=== PATIENT | female | born 1970 | race Caucasian/White ===

== ENCOUNTER 2016-05-06 21:52 | Inpatient (IN) | payer OTHER ==
[~2016-05-06] VITALS: Ht 154.9 cm; Wt 96.4 kg
--- NOTE | 2016-05-06 23:38 | ED ORDER SUMMARY ---
..... Patient: ELZA ZALDIVAR OrderSheet [facility] VisitID: [id number] [address] [place] [address] 45y, F Registration Date/Time: 05/06/2016 ORDER SHEET Weight: 90.7 kg (stated) Allergies: Erythromycin, Bactrim, Vicodin GENERAL ORDERS: CBC w Diff Urgent (22:13 05/06/2016 Dayan Cliffrod) (Ack 22:15 CHagerty ER Coin Machine Operator) (22:53 EInderbitzen R.N.) CMP Urgent (22:13 05/06/2016 Dayan Clifford) (Ack 22:15 CHagerty [facility] Coin Machine Operator) (22:53 EInderbitzen R.N.) UA-Culture if indicated Urgent (22:13 05/06/2016 Dayan Clifford) (Ack 22:15 [facility] Coin Machine Operator) (22:53 EInderbitzen R.N.) Lipase Urgent (22:13 05/06/2016 Dayan Clifford) (Ack 22:15 [facility] Coin Machine Operator) (22:53 EInderbitzen R.N.) Serum Quantitative Urgent (22:13 05/06/2016 Dayan Clifford) (Ack 22:15 CHagerty ER Coin Machine Operator) (22:53 EInderbitzen R.N.) US Abdomen Limited (No) Urgent (23:28 05/06/2016 Dayan Clifford) (Ack 23:31 Heidy) (0:48 CHagerty ER Coin Machine Operator) Consult - GI (23:29 05/06/2016 Dayan Clifford) (Ack 23:37 CHagerty ER Coin Machine Operator) (1:06 CHagerty ER Coin Machine Operator) MEDICATION ORDERS: GI Cocktail WHITE PO 30 mL (NOW) (22:47 05/06/2016 Dayan Clifford) (23:01 EInderbitzen R.N.) IV FLUIDS: IV NS : initial bolus 1000 mL (1000 mL/hr), then none - for X1 (NOW) (22:12 05/06/2016 Dayan Clifford) (22:31 EInderbitzen R.N.) Zofran IV 4 mg (NOW) (22:13 05/06/2016 Dayan Clifford) (22:32 EInderbitzen R.N.) Morphine IV 4 mg (HIGH ALERT MEDICATION, NOW) (22:13 05/06/2016 Dayan Clifford) (22:32 EInderbitzen R.N.) Dilaudid IV 1 mg (HIGH ALERT MEDICATION, NOW) (23:29 05/06/2016 Dayan Clifford) (23:40 EInderbitzen R.N.) Zosyn IV 4.5 gm/100mL (NOW) (00:50 05/07/2016 Dayan Clifford) (1:10 EInderbitzen R.N.) Dilaudid IV 1 mg (HIGH ALERT MEDICATION, NOW) (01:23 05/07/2016 EInderbitzen R.N. verbal order read back to Dayan Clifford) (1:24 EInderbitzen R.N.) ORDER SHEET NOTES: [Electronically signed by Mynor Portillo R.N. (02:32 05/07/2016)] [Electronically signed by Colten Palencia Dr. (07:35 05/07/2016)] [Electronically locked/signed by Mynor Portillo R.N. (02:32 05/07/2016)]
--- NOTE | 2016-05-06 23:38 | ED CLINICAL REPORT ---
Clinical Report - Physicians/Mid Levels [facility] [address] [place] [address] 05/06/2016 21:53 Patient: ELZA ZALDIVAR Arrived- By private vehicle. Historian- patient. HISTORY OF PRESENT ILLNESS Chief Complaint: ABDOMINAL PAIN. At its maximum, severity described as severe. When seen in the E.D., severity described as severe. Modifying factors- worsened by movement. Relieved by rest. This started past several days and is still present and worsening. It was gradual in onset and has been constant and waxing/waning but is not gone now. It is described as sharp. No radiation. It is described as located in the epigastric area. The patient has had nausea and diarrhea. No loss of appetite. She has had vomiting (described as nbnb). No additional abdominal pain. No recent travel. Similar symptoms previously: None. Recent medical care: Not recently seen/assessed. REVIEW OF SYSTEMS No fever, skin rash or chills. All systems otherwise negative, except as recorded above. PAST HISTORY See nurses notes. SOCIAL HISTORY Never smoker. No alcohol use or drug use. Is a local resident. FAMILY HISTORY (no family history of bowel problems). ADDITIONAL NOTES The nursing notes have been reviewed. PHYSICAL EXAM Vital Signs: 05/06/2016 21:58 BP: 130/57. HR: 78. RR: 22. O2 saturation: 100%. Temp: 97.7 F. Pain level now: 10/10. Blood pressure normal. Oxygen saturation normal. Appearance: Alert. Oriented X3. Patient in mild distress. Eyes: Pupils equal, round and reactive to light. Eyes normal inspection. No scleral icterus or pale conjunctivae. ENT: Ears normal. Nose normal. Pharynx normal. Neck: Normal inspection. Neck supple. No JVD. CVS: Normal heart rate and rhythm. Heart sounds normal. Pulses normal. Respiratory: No respiratory distress. Breath sounds normal. Chest nontender. Abdomen: Soft. Moderate tenderness in the epigastric area. No tenderness in the right lower quadrant, guarding or rebound tenderness. No Casanova's, obturator or psoas sign present. Bowel sounds normal. No mass. Back: Normal inspection. Skin: Skin warm and dry. Normal skin color. No rash. Normal skin turgor. Extremities: Extremities exhibit normal ROM. No lower extremity edema. Neuro: Oriented X 3. No motor deficit. No sensory deficit. LABS, X-RAYS, AND EKG Bedside Abdominal Sonogram: , And bile duct to 8 mm. Thickened gallbladder wall with pericholecystic fluid. Extensive sludge. Positive for acute cholecystitis. Indication for study: (Abdominal pain). The exam was performed by a computer service technician. RUQ (Morison's pouch) views were obtained The study was independently viewed by me and interpreted contemporaneously by me. Laboratory Tests: UA-Culture if indicated: (AMOS: 05/06/2016 22:20) ( MsgRcvd 05/06/2016 22:44) Final results Test Result Flag Units (Reference) URINE COLOR YELLOW URINE APPEARANCE CLEAR URINE GLUCOSE NEGATIVE (NEGATIVE) URINE BILIRUBIN NEGATIVE (NEGATIVE) URINE KETONE NEGATIVE (NEGATIVE) URINE SPECIFIC GRAVITY 1.025 (1.010-1.030) URINE PH 5.5 (5.0-8.0) URINE PROTEIN TRACE (NEGATIVE) URINE UROBILINOGEN 0.2 EU/dL (0.2-1.0) URINE NITRITE NEGATIVE (NEGATIVE) URINE BLOOD NEGATIVE (NEGATIVE) URINE LEUK ESTERASE NEGATIVE (NEGATIVE) URINE RBC 0-1 rbc/hpf (0-1) URINE WBC 0-1 wbc/hpf (0-1) URINE EPITHELIAL CELLS 0-1 EPI/hpf (0-5) URINE BACTERIA NONE SEEN (NONE SEEN) URINE COMMENT CULT NOT INDICATED URINE CULTURES ARE SET-UP BASED ON THE FOLLOWING CRITERIA:POSITIVE NITRITEPOSITIVE LEUKOCYTE ESTERASEGREATER THAN 10 WHITE BLOOD CELLSMODERATE (2+) OR GREATER BACTERIA CBC w Diff: (AMOS: 05/06/2016 22:20) ( [facility] [place]37[place] Final results Test Result Flag Units (Reference) WHITE BLOOD COUNT 17.0 H K/uL (4.5-11.5) RED BLOOD COUNT 4.86 M/uL (4.00-5.20) HEMOGLOBIN 11.0 L gm/dL (12.0-16.0) HEMATOCRIT 34.5 L % (36.0-46.0) MEAN CELL VOLUME 71 L fL (80-100) MEAN CORPUSCULAR HGB 23 L pg (26-34) MEAN CORPUSCULAR HGB CONC 32 g/dL (31-37) RED CELL DISTRIBUTION WIDTH 18.2 H % (11.6-14.8) PLATELET COUNT 514 H K/uL (150-400) NEUTROPHIL % 92.6 H % (50-75) LYMPH % 5.1 L % (25-40) MONO % 2.2 L % (3-14) EOSINOPHIL % 0.1 % (0-4) BASOPHIL % 0 % (0-2) CMP: (AMOS: 05/06/2016 22:20) ( MsgRcvd 05/06/2016 23:25) Final results Test Result Flag Units (Reference) GLUCOSE 166 H mg/dL (70-110) BUN 20 H mg/dL (7-18) CREATININE 0.9 mg/dL (0.6-1.3) Estimated GFR >60 mL/min Estimated GFR- >60 mL/min Note: Persistent reduction over 3 months in eGFR<60 mL/min/1.73 m2 defines CKD. Patients with eGFR values>=60 mL/min/1.73 m2 may also have CKD if evidence ofpersistent proteinuria. Additional information may be foundat www.kidney.org. SODIUM 140 mmol/L (136-145) POTASSIUM 3.9 mmol/L (3.5-5.1) CHLORIDE 103 mmol/L (98-107) CARBON DIOXIDE 27 mmol/L (21-32) CALCIUM 8.8 mg/dL (8.5-10.1) TOTAL PROTEIN 7.4 g/dL (6.4-8.2) ALBUMIN 3.6 g/dL (3.3-5.0) BILIRUBIN, TOTAL 0.3 mg/dL (0.0-1.0) ALKALINE PHOSPHATASE 306 H U/L (46-116) AST (SGOT) 220 H U/L (15-37) ALT (SGPT) 261 H U/L (12-78) BETA HCG, QUANTITATIVE <1 mIU/mL REFERENCE RANGE:Adult Males: <2 mIU/mLNon- Females: <6 mIU/mL Females:Approximate Approximate hCGGestational Age Range (mIU/mL) 0-1 week 0-501-2 weeks 40-3002-3 weeks 100-28037-9 weeks 500-87749-4 months 5,000-200,0002-3 months 10,000-100,0002nd trimester 3,000-50,0003rd trimester 1,000-50,000 LIPASE 8905 H U/L (73-393) . PROGRESS AND PROCEDURES Course of Care: the patient is a pleasant 45-year-old female presented for evaluation of abdominal pain. Patient is reporting epigastric abdominal pain. The patient is also reporting nausea, vomiting, and diarrhea. Because of the nausea, vomiting, and diarrhea, likely viral etiology. We'll evaluate for other causes of the patient's abdominal pain here in the emergency department in [facility] including pancreatitis, and biliary pathology. Do not fill imaging would be warranted at this time on this patient has significant abnormalities laboratory workup. Pain medication and nausea medication at been provided. Patient is nontoxic. Vital signs are otherwise unremarkable. Workup shows patient to have significant abnormalities with liver enzymes. AST, ELT, alkaline phosphatase, and lipase are elevated. At this time patient likely with cholangitis. Ultrasound has been ordered. Anticipate consult with GI. Ultrasound has been obtained. Common bile ducts noted to be 8 mm. Patient also with signs of acute cholecystitis. [facility]. We are currently awaiting their recommendations and callback. GI recommended that the patient needed MRCP. State that if the stone has been removed or there is no stone available, patient would need her gallbladder removed. I discussed withgastroenterology my concern for the elevated lipase as well. Would be concerned forbiliary tract involvement not just acute cholecystitis. Gastroenterology insisted that the patient need an MRCP. I discussed with gastroenterology the possible difficulties with obtaining an MRCP here at our facility as the MRI is not running at all times. We cannot call a tech in to perform one if the survey data technician has not been scheduled. Recommended the patient be admitted to our facility. Also recommended that the patient be consult with our surgeons. We did briefly speak with our surgeon here in the emergency department and feel that there would be a high likelihood of needing an ERCP. Because of this, did not feel that our facility would be appropriate at this time however gastroenterology did bring up a good point about needing an MRCP and if that test was normal at that patient would not need an ERCP. I discussed this case with our surgeon following consultation with gastroenterology. Antibiotics of been started per GIs recommendations. I spoke to general surgery who will be a consult isn't on the case. Recommended patient be admitted to the hospitalist. I did consult with our hospitalist who will accept the patient. Patient is afebrile here in the emergency department and continues to be in no acute distress. Patient has needed medi improvement of symptoms. Discussed with patient workup and diagnosis as well as plan of care to be admitted to the hospital. Patient is agreeable to treatment plan. All questions and answered. Feel the patient is not a good outpatient candidate given her symptoms here in the emergency department. Patient is nontoxic and does not need her gallbladder removed emergently however does need to be evaluated at this point in time for her elevated liver enzymes and acute cholecystitis. Would possibly need them removed at her admission at this time. Patient was admitted without incident. Prior to patient's departure to the medical floor, she was noted to have unremarkable vital signs. Patient continues to be afebrile. Patient is nontoxic. Do not feel patient needs to be admitted to the intensive care unit at this time. Critical care performed (75 minutes). Time is exclusive of separately billable procedures. Time includes: direct patient care, patient reassessment, coordination of patient care, interpretation of data (laboratory data), review of patient's medical records, medical consultation and documentation of patient care. Consult obtained. Gastroenterology and general surgery. Disposition: Admitted to Acute Care. CLINICAL IMPRESSION 05/07/2016 02:28 BP: 128/54. HR: 66. RR: 16. O2 saturation: 98%. Temp: 98 F. Blood pressure normal. Oxygen saturation normal. Acute cholangitis acute nausea and vomiting intractable epigastric abdominal pain acute leukocytosis acute pancreatitis. (Electronically signed by Colten Palencia Dr. 05/07/2016 7:35)
--- NOTE | 2016-05-06 23:38 | ED ORDER SUMMARY ---
..... Patient: ELZA ZALDIVAR OrderSheet [facility] VisitID: [id number] [address] [place] [address] 45y, F Registration Date/Time: 05/06/2016 ORDER SHEET Weight: 90.7 kg (stated) Allergies: Erythromycin, Bactrim, Vicodin GENERAL ORDERS: CBC w Diff Urgent (22:13 05/06/2016 Dayan Clifford) (Ack 22:15 CHagerty ER Sidewalk Repairer) (22:53 EInderbitzen R.N.) CMP Urgent (22:13 05/06/2016 Daayn Clifford) (Ack 22:15 CHagerty ER Sidewalk Repairer) (22:53 EInderbitzen R.N.) UA-Culture if indicated Urgent (22:13 05/06/2016 Dayan Clifford) (Ack 22:15 CHagerty ER Sidewalk Repairer) (22:53 EInderbitzen R.N.) Lipase Urgent (22:13 05/06/2016 Dayan Clifford) (Ack 22:15 CHagerty ER Sidewalk Repairer) (22:53 EInderbitzen R.N.) Serum Quantitative Urgent (22:13 05/06/2016 Dayan Clifford) (Ack 22:15 CHagerty ER Sidewalk Repairer) (22:53 EInderbitzen R.N.) US Abdomen Limited (No) Urgent (23:28 05/06/2016 Dayan Clifford) (Ack 23:31 Heidy) (0:48 CHagerty ER Sidewalk Repairer) Consult - GI (23:29 05/06/2016 Dayan Clifford) (Ack 23:37 CHagerty ER Sidewalk Repairer) (1:06 CHagerty ER Sidewalk Repairer) MEDICATION ORDERS: GI Cocktail WHITE PO 30 mL (NOW) (22:47 05/06/2016 Dayan Clifford) (23:01 EInderbitzen R.N.) IV FLUIDS: IV NS : initial bolus 1000 mL (1000 mL/hr), then none - for X1 (NOW) (22:12 05/06/2016 Dayan Clifford) (22:31 EInderbitzen R.N.) Zofran IV 4 mg (NOW) (22:13 05/06/2016 Dayan Clifford) (22:32 EInderbitzen R.N.) Morphine IV 4 mg (HIGH ALERT MEDICATION, NOW) (22:13 05/06/2016 Dayan Clifford) (22:32 EInderbitzen R.N.) Dilaudid IV 1 mg (HIGH ALERT MEDICATION, NOW) (23:29 05/06/2016 Dayan Clifford) (23:40 EInderbitzen R.N.) Zosyn IV 4.5 gm/100mL (NOW) (00:50 05/07/2016 Dayan Clifford) (1:10 EInderbitzen R.N.) Dilaudid IV 1 mg (HIGH ALERT MEDICATION, NOW) (01:23 05/07/2016 EInderbitzen R.N. verbal order read back to Dayan Clifford) (1:24 EInderbitzen R.N.) ORDER SHEET NOTES: [Electronically signed by Mynor Portillo R.N. (02:32 05/07/2016)] [Electronically signed by Colten Palencia Dr. (07:35 05/07/2016)] [Electronically locked/signed by Mynor Portillo R.N. (02:32 05/07/2016)]
--- NOTE | 2016-05-06 23:38 | ED CLINICAL REPORT ---
Clinical Report - Physicians/Mid Levels [facility] [address] [place] [address] 05/06/2016 21:53 Patient: ELZA ZALDIVAR Arrived- By private vehicle. Historian- patient. HISTORY OF PRESENT ILLNESS Chief Complaint: ABDOMINAL PAIN. At its maximum, severity described as severe. When seen in the E.D., severity described as severe. Modifying factors- worsened by movement. Relieved by rest. This started past several days and is still present and worsening. It was gradual in onset and has been constant and waxing/waning but is not gone now. It is described as sharp. No radiation. It is described as located in the epigastric area. The patient has had nausea and diarrhea. No loss of appetite. She has had vomiting (described as nbnb). No additional abdominal pain. No recent travel. Similar symptoms previously: None. Recent medical care: Not recently seen/assessed. REVIEW OF SYSTEMS No fever, skin rash or chills. All systems otherwise negative, except as recorded above. PAST HISTORY See nurses notes. SOCIAL HISTORY Never smoker. No alcohol use or drug use. Is a local resident. FAMILY HISTORY (no family history of bowel problems). ADDITIONAL NOTES The nursing notes have been reviewed. PHYSICAL EXAM Vital Signs: 05/06/2016 21:58 BP: 130/57. HR: 78. RR: 22. O2 saturation: 100%. Temp: 97.7 F. Pain level now: 10/10. Blood pressure normal. Oxygen saturation normal. Appearance: Alert. Oriented X3. Patient in mild distress. Eyes: Pupils equal, round and reactive to light. Eyes normal inspection. No scleral icterus or pale conjunctivae. ENT: Ears normal. Nose normal. Pharynx normal. Neck: Normal inspection. Neck supple. No JVD. CVS: Normal heart rate and rhythm. Heart sounds normal. Pulses normal. Respiratory: No respiratory distress. Breath sounds normal. Chest nontender. Abdomen: Soft. Moderate tenderness in the epigastric area. No tenderness in the right lower quadrant, guarding or rebound tenderness. No Casanova's, obturator or psoas sign present. Bowel sounds normal. No mass. Back: Normal inspection. Skin: Skin warm and dry. Normal skin color. No rash. Normal skin turgor. Extremities: Extremities exhibit normal ROM. No lower extremity edema. Neuro: Oriented X 3. No motor deficit. No sensory deficit. LABS, X-RAYS, AND EKG Bedside Abdominal Sonogram: , And bile duct to 8 mm. Thickened gallbladder wall with pericholecystic fluid. Extensive sludge. Positive for acute cholecystitis. Indication for study: (Abdominal pain). The exam was performed by a chief technician x ray. RUQ (Morison's pouch) views were obtained The study was independently viewed by me and interpreted contemporaneously by me. Laboratory Tests: UA-Culture if indicated: (AMOS: 05/06/2016 22:20) ( MsgRcvd 05/06/2016 22:44) Final results Test Result Flag Units (Reference) URINE COLOR YELLOW URINE APPEARANCE CLEAR URINE GLUCOSE NEGATIVE (NEGATIVE) URINE BILIRUBIN NEGATIVE (NEGATIVE) URINE KETONE NEGATIVE (NEGATIVE) URINE SPECIFIC GRAVITY 1.025 (1.010-1.030) URINE PH 5.5 (5.0-8.0) URINE PROTEIN TRACE (NEGATIVE) URINE UROBILINOGEN 0.2 EU/dL (0.2-1.0) URINE NITRITE NEGATIVE (NEGATIVE) URINE BLOOD NEGATIVE (NEGATIVE) URINE LEUK ESTERASE NEGATIVE (NEGATIVE) URINE RBC 0-1 rbc/hpf (0-1) URINE WBC 0-1 wbc/hpf (0-1) URINE EPITHELIAL CELLS 0-1 EPI/hpf (0-5) URINE BACTERIA NONE SEEN (NONE SEEN) URINE COMMENT CULT NOT INDICATED URINE CULTURES ARE SET-UP BASED ON THE FOLLOWING CRITERIA:POSITIVE NITRITEPOSITIVE LEUKOCYTE ESTERASEGREATER THAN 10 WHITE BLOOD CELLSMODERATE (2+) OR GREATER BACTERIA CBC w Diff: (AMOS: 05/06/2016 22:20) ( [facility] [place] [facility]:37) Final results Test Result Flag Units (Reference) WHITE BLOOD COUNT 17.0 H K/uL (4.5-11.5) RED BLOOD COUNT 4.86 M/uL (4.00-5.20) HEMOGLOBIN 11.0 L gm/dL (12.0-16.0) HEMATOCRIT 34.5 L % (36.0-46.0) MEAN CELL VOLUME 71 L fL (80-100) MEAN CORPUSCULAR HGB 23 L pg (26-34) MEAN CORPUSCULAR HGB CONC 32 g/dL (31-37) RED CELL DISTRIBUTION WIDTH 18.2 H % (11.6-14.8) PLATELET COUNT 514 H K/uL (150-400) NEUTROPHIL % 92.6 H % (50-75) LYMPH % 5.1 L % (25-40) MONO % 2.2 L % (3-14) EOSINOPHIL % 0.1 % (0-4) BASOPHIL % 0 % (0-2) CMP: (AMOS: 05/06/2016 22:20) ( MsgRcvd 05/06/2016 23:25) Final results Test Result Flag Units (Reference) GLUCOSE 166 H mg/dL (70-110) BUN 20 H mg/dL (7-18) CREATININE 0.9 mg/dL (0.6-1.3) Estimated GFR >60 mL/min Estimated GFR- >60 mL/min Note: Persistent reduction over 3 months in eGFR<60 mL/min/1.73 m2 defines CKD. Patients with eGFR values>=60 mL/min/1.73 m2 may also have CKD if evidence ofpersistent proteinuria. Additional information may be foundat www.kidney.org. SODIUM 140 mmol/L (136-145) POTASSIUM 3.9 mmol/L (3.5-5.1) CHLORIDE 103 mmol/L (98-107) CARBON DIOXIDE 27 mmol/L (21-32) CALCIUM 8.8 mg/dL (8.5-10.1) TOTAL PROTEIN 7.4 g/dL (6.4-8.2) ALBUMIN 3.6 g/dL (3.3-5.0) BILIRUBIN, TOTAL 0.3 mg/dL (0.0-1.0) ALKALINE PHOSPHATASE 306 H U/L (46-116) AST (SGOT) 220 H U/L (15-37) ALT (SGPT) 261 H U/L (12-78) BETA HCG, QUANTITATIVE <1 mIU/mL REFERENCE RANGE:Adult Males: <2 mIU/mLNon- Females: <6 mIU/mL Females:Approximate Approximate hCGGestational Age Range (mIU/mL) 0-1 week 0-501-2 weeks 40-3002-3 weeks 100-74727-9 weeks 500-36541-0 months 5,000-200,0002-3 months 10,000-100,0002nd trimester 3,000-50,0003rd trimester 1,000-50,000 LIPASE 8905 H U/L (73-393) . PROGRESS AND PROCEDURES Course of Care: the patient is a pleasant 45-year-old female presented for evaluation of abdominal pain. Patient is reporting epigastric abdominal pain. The patient is also reporting nausea, vomiting, and diarrhea. Because of the nausea, vomiting, and diarrhea, likely viral etiology. We'll evaluate for other causes of the patient's abdominal pain here in the emergency department in [facility] including pancreatitis, and biliary pathology. Do not fill imaging would be warranted at this time on this patient has significant abnormalities laboratory workup. Pain medication and nausea medication at been provided. Patient is nontoxic. Vital signs are otherwise unremarkable. Workup shows patient to have significant abnormalities with liver enzymes. AST, ELT, alkaline phosphatase, and lipase are elevated. At this time patient likely with cholangitis. Ultrasound has been ordered. Anticipate consult with GI. Ultrasound has been obtained. Common bile ducts noted to be 8 mm. Patient also with signs of acute cholecystitis. [facility]. We are currently awaiting their recommendations and callback. GI recommended that the patient needed MRCP. State that if the stone has been removed or there is no stone available, patient would need her gallbladder removed. I discussed withgastroenterology my concern for the elevated lipase as well. Would be concerned forbiliary tract involvement not just acute cholecystitis. Gastroenterology insisted that the patient need an MRCP. I discussed with gastroenterology the possible difficulties with obtaining an MRCP here at our facility as the MRI is not running at all times. We cannot call a tech in to perform one if the ammonia technician has not been scheduled. Recommended the patient be admitted to our facility. Also recommended that the patient be consult with our surgeons. We did briefly speak with our surgeon here in the emergency department and feel that there would be a high likelihood of needing an ERCP. Because of this, did not feel that our facility would be appropriate at this time however gastroenterology did bring up a good point about needing an MRCP and if that test was normal at that patient would not need an ERCP. I discussed this case with our surgeon following consultation with gastroenterology. Antibiotics of been started per GIs recommendations. I spoke to general surgery who will be a consult isn't on the case. Recommended patient be admitted to the hospitalist. I did consult with our hospitalist who will accept the patient. Patient is afebrile here in the emergency department and continues to be in no acute distress. Patient has needed medi improvement of symptoms. Discussed with patient workup and diagnosis as well as plan of care to be admitted to the hospital. Patient is agreeable to treatment plan. All questions and answered. Feel the patient is not a good outpatient candidate given her symptoms here in the emergency department. Patient is nontoxic and does not need her gallbladder removed emergently however does need to be evaluated at this point in time for her elevated liver enzymes and acute cholecystitis. Would possibly need them removed at her admission at this time. Patient was admitted without incident. Prior to patient's departure to the medical floor, she was noted to have unremarkable vital signs. Patient continues to be afebrile. Patient is nontoxic. Do not feel patient needs to be admitted to the intensive care unit at this time. Critical care performed (75 minutes). Time is exclusive of separately billable procedures. Time includes: direct patient care, patient reassessment, coordination of patient care, interpretation of data (laboratory data), review of patient's medical records, medical consultation and documentation of patient care. Consult obtained. Gastroenterology and general surgery. Disposition: Admitted to Acute Care. CLINICAL IMPRESSION 05/07/2016 02:28 BP: 128/54. HR: 66. RR: 16. O2 saturation: 98%. Temp: 98 F. Blood pressure normal. Oxygen saturation normal. Acute cholangitis acute nausea and vomiting intractable epigastric abdominal pain acute leukocytosis acute pancreatitis. (Electronically signed by Colten Palencia Dr. 05/07/2016 7:35)
--- NOTE | 2016-05-06 23:38 | ED NURSING NOTES ---
Clinical Report - Nurses [place] [address] [place] [address] 05/06/2016 21:53 Patient: ELZA ZALDIVAR TRIAGE Triage time 21:58 May 06 2016. Acuity: LEVEL 3. Chief Complaint: ABDOMINAL PAIN. SEPSIS SCREEN: Sepsis Screen: negative. Negative (no infection suspected/documented). PRITESH COMA SCORE: Goodrich Coma Scale: 15- eyes open spontaneously (4); best verbal response- oriented and converses (5); best motor response- obeys commands (6). --22:04 Parul Gallegos R.N. 21:58 05/06/16. BP: 130/57. HR: 78. RR: 22. O2 saturation: 100%. Temp: 97.7 F. Pain level now: 01/10. --22:04 Parul Gallegos R.N. Weight: 90.7 kg stated. Height/Length: 60 inches Per Patient. BMI: 39.1. --21:58 Parul Gallegos R.N. Medications Cephalexin Oral (Capsule 500 mg) 1 capsule, 4x a day. --22:06 Parul Gallegos R.N. Nabumetone Oral (Tablet 750 mg) 1 tablet, BID. --22:06 Parul Gallegos R.N. Atenolol Oral (Tablet 25 mg) 1 tablet, daily. --22:06 Parul Gallegos R.N. Hydrochlorothiazide Oral (Tablet 25 mg) 1 tablet, daily. --22:07 Parul Gallegos R.N. Lisinopril Oral (Tablet 40 mg) 1 tablet, daily. --22:07 Parul Gallegos R.N. Allergies Erythromycin. --22:08 Parul Gallegos R.N. Bactrim. --22:08 Parul Gallegos R.N. Vicodin. --22:08 Parul Gallegos R.N. Medication/allergy information source: the patient. --22:04 Parul Gallegos R.N. History Arrived by private vehicle. Historian: patient. Accompanied by family. This started just prior to arrival. ( started after eating , epigastric pain with n/v and a few episodes of diarrhea, constant cramping). She has had nausea, vomiting and diarrhea. Treatment SOFTWARE PRODUCT SPECIALIST: None. PAST MEDICAL HX: Last normal menstrual period was 1 week ago. SOCIAL HX: Former smoker. No alcohol use or drug use. No recent travel. No known contact with a sick individual. ABUSE ASSESSMENT: No report of abuse. SELF HARM ASSESSMENT: A self harm assessment was performed. The patient answered "no" to the question "Have you recently felt down, depressed, or hopeless?", "Have you noticed less interest or pleasure in doing things?", "Do you have thoughts of harming or killing yourself?", "Are you here because you tried to hurt yourself?", "Have you ever tried to hurt yourself before today?", "Have you recently had thoughts about harming or killing others?" and "Do you have any dangerous items in your possession?". FALL RISK ASSESSMENT: Fall risk assessment completed. No fall risk identified. NUTRITIONAL RISK ASSESSMENT: The nutritional risk assessment revealed no deficiencies. FUNCTIONAL ASSESSMENT: Functional assessment: no impairments noted. LEARNING NEEDS ASSESSMENT: The learning needs assessment revealed no barriers. SKIN INTEGRITY ASSESSMENT: Skin integrity risk assessment completed. No skin integrity risk identified. --22:04 Parul Gallegos R.N. PROBLEMS: Cervical Strain. Hypertension. --22:08 Parul Gallegos R.N. ADDITIONAL SURGERIES: no known surgeries. Interventions ID band on patient. --22:04 Parul Gallegos R.N. PHYSICAL ASSESSMENT 22:04 05/06/16. Ambulatory to room. GENERAL / NEURO / PSYCH: Alert. Oriented X 4. Appears in pain. HEENT: Mucous membranes are pink. RESPIRATORY: Respirations not labored. CVS: Capillary refill less than 2 seconds. GI / : Abdomen soft. Bowel sounds within normal limits. SKIN: Skin is warm and dry. --22:04 Parul Gallegos R.N. GI / : The patient has had nausea. No rebound tenderness, abdominal distention, guarding or mass present in the abdominal region. No emesis noted. --22:04 Parul Gallegos R.N. NURSING PROGRESS NOTES 22:00 05/06/16. The initial plan of care for this patient includes an assessment with efforts to address the presence of pain; impairment of the gastrointestinal system. This plan of care was discussed with the patient. Patient gowned. Reassurance given. Patient identifiers checked. Call light placed in reach. Side rails up. Bed placed in lowest position. Brakes of bed on. Patient ready for evaluation. --22:30 Parul Gallegos R.N. 22:05/06/2016 Site #1 started via IV in the right antecubital space with an 20g angiocath, with aseptic technique and good blood return; one attempt. Blood drawn: rainbow set. Labeled in the presence of the patient and sent to the lab. Saline lock flushed with 10 mL saline. --22:31 Parul Gallegos R.N. 22:24 05/06/2016 Started bag #1 1000 mL IV Fluids IV NS (Saline); at 1000 mL/hr over 1 hour(s) via site #1. Allergies verified and confirmed 5 rights. IV patency established. IV site checked: no pain, redness, or swelling. IV flushed thoroughly pre- and post-medication administration. --22:31 Parul Gallegos R.N. 22:05/06/2016 Zofran (Ondansetron HCl) IVP 4 mg given over 1 minute(s) via site #1. Allergies verified and confirmed 5 rights. IV patency established. IV site checked: no pain, redness, or swelling. IV flushed thoroughly pre- and post-medication administration. IVP given by RN. --22:32 Parul Gallegos R.N. 22:25 05/06/2016 Morphine IVP 4 mg given over 2 minute(s) via site #1. IV patency established. IV site checked: no pain, redness, or swelling. IV flushed thoroughly pre- and post-medication administration. IVP given by RN. --22:32 Parul Gallegos R.N. 23:01 05/06/2016 GI COCKTAIL WHITE (Simethicone) PO Oral Suspension 30 mL given. Allergies verified and confirmed 5 rights. --23:01 Parul Gallegos R.N. 23:24 05/06/16. The patient has had no adverse reaction. Overall patient status is the same- she states feels the same. ( abd cramping). GI / : Denies nausea. --23:24 Parul Gallegos R.N. 23:27 05/06/16. BP: 117/54. HR: 88. RR: 16. O2 saturation: 95%. Pain level now 8/10. --23:27 Parul Gallegos R.N. 23:36 05/06/2016 Dilaudid (HYDROmorphone HCl PF) IVP 1 mg given over 1 minute(s) via site #1. Allergies verified, confirmed 5 rights and sedative warning given to the patient. IV patency established. IV site checked: no pain, redness, or swelling. IV flushed thoroughly pre- and post-medication administration. IVP given by RN. --23:40 Parul Gallegos R.N. 00:00 05/07/16. BP: 132/52. HR: 71. RR: 16. O2 saturation: 95%. --00:00 Parul Gallegos R.N. 23:50 05/06/2016 IV Fluids IV NS Discontinued: bag #1 completed. Total amount infused: 1000 mL. IV patency established. IV site checked: no pain, redness, or swelling. IV flushed thoroughly. --02:31 Mynor Portillo R.N. 00:00 05/07/16. The patient is resting quietly and has had no adverse reaction. Overall patient status is improved. GI / : The patient reports abdominal pain located in the upper abdomen is still present but improving and currently moderate in severity and constant. ( Ultrasound ETE 10 minutes). --00:00 Parul Gallegos R.N. 00:18 05/07/16. ( agronomy technician is at bedside). --00:18 Parul Gallegos R.N. 01:05 05/07/2016 Started 4.5 gm of Zosyn (Piperacillin Sod-Tazobactam So) IVPB in bag #1 116 mL; at 100 mL/hr over 1 hour(s) via site #1 via dial-a-flow. Allergies verified and confirmed 5 rights. IV patency established. IV site checked: no pain, redness, or swelling. IV flushed thoroughly pre- and post-medication administration. --01:10 Parul Gallegos R.N. 01:10 05/07/2016 Dilaudid (HYDROmorphone HCl PF) IVP 1 mg given over 1 minute(s) via site #1. Allergies verified, confirmed 5 rights and sedative warning given to the patient. IV patency established. IV site checked: no pain, redness, or swelling. IV flushed thoroughly pre- and post-medication administration. IVP given by RN. --01:24 Parul Gallegos R.N. 01:24 05/07/16. Care transferred and report given (to STEPHANIE Barajas). --01:24 Parul Gallegos R.N. DISPOSITION / DISCHARGE Departure time: 0229. Admitted to Acute Care (0229 AM). Transported via stretcher by tech with IV. Report was given to a nurse via a phone call. Report included patient's care, treatment, medications, reviewed medication reconcilliation, and condition (including any recent changes or anticipated changes). All questions were answered. Report was acknowledged and care was transferred. Bed obtained and ready. Patient's personal items include: coat, socks and shoes. --02:30 Mynor Portillo R.N. 02:28 05/07/16. BP: 128/54. HR: 66. RR: 16. O2 saturation: 98%. Temp: 98 F. Pain level now 8/10. --02:30 Mynor Portillo R.N. Locked/Released at 05/07/2016 2:32 by Mynor Portillo R.N.
[2016-05-07] VITALS (7 sets, daily range): BP systolic 112–168; BP diastolic 61–101
[2016-05-07] MEDS ORDERED: HYDROCHLOROTHIA25 MG PO (02:27)
[2016-05-07] MEDS ORDERED: ATENOLOL25 MG PO (02:27)
[2016-05-07] MEDS ORDERED: NABUMETONE750 MG PO (02:29)
[2016-05-07] MEDS ORDERED: LISINOPRIL10 MG PO (02:29)
[2016-05-07] MEDS ORDERED: KEFLEX500 M1 PO (02:30)
--- NOTE | 2016-05-07 03:35 | HISTORY AND PHYSICAL ---
ADMITTED: 05/07/2016 CHIEF COMPLAINT: 1. Abdominal pain 2. Nausea and vomiting HISTORY OF PRESENT ILLNESS: The patient is a 45-year-old lady who has had problems in the past with hypertension and some problems with allergies and asthma now and then. She had generally been feeling okay until 05/05/2016 when she noticed that she developed quite pronounced abdominal pain, nausea, and general upper abdominal discomfort after she ate a hamburger julian for supper. She spent a rather uncomfortable night, but was able to sleep some. She had some ongoing abdominal discomfort when she woke up in the morning on 05/06/2016. She felt somewhat upset all day, but decided to try to eat some chicken and rice around midday. After she did this, she had steadily increased abdominal pain in the upper abdominal area and then developed refractory nausea and vomiting. She was not able to control this. The pain was quite severe and this caused her to decide to come into the emergency department for evaluation. She arrived about at 10:00 p.m. She has had no blood in her vomitus. She has not had any persistent diarrhea. She did have a loose stool earlier in the day of a small amount. She has not had problems in the past with abdominal pain and has not had problems with ulcers or gallbladder issues, as far she can tell. MEDICAL/SURGICAL HISTORY: Past medical history is remarkable for hypertension, fairly longstanding. She also has had a low-grade infection in her right big toe. She is currently on cephalexin for this. She has had some problems as well with chronic back pain. Past surgical history is remarkable for pregnancies x2 with normal spontaneous vaginal deliveries x2. She has had no other operations. She has had no fractures. MEDICATIONS: Current medications include: 1. Atenolol 25 mg daily. 2. Hydrochlorothiazide 25 mg daily. 3. Lisinopril 40 mg daily. 4. Nabumetone 750 mg 1 twice daily for back pain or neck pain. 5. She has also been on cephalexin 500 mg one 4 times daily for a toe infection , which has pretty much resolved. 6. She has used fluticasone nasal spray off and on for flares of allergies. She currently is not using this. ALLERGIES: INCLUDE: 1. ERYTHROMYCIN. 2. TRIMETHOPRIM/SULFAMETHOXAZOLE. 3. VICODIN. SOCIAL HISTORY: Indicates the patient is and is working. She does smoke about 1/2 package of cigarettes daily. She is trying to stop. She has not been one to drink alcohol or use any other drugs. FAMILY HISTORY: Remarkable for a mother who is in fairly good health in her late 60s. She thinks her mother may have some blood pressure problems and not really much of anything else. Her father in his 60s. She has not had a lot of contact with her father over the years and is not exactly sure from what he . She does know that he had diabetes. REVIEW OF SYSTEMS: LAVON is okay. She does have some problems with her teeth. Respiratory: Okay, though currently it is quite uncomfortable for her to take a deep breath in. Cardiovascular: Okay, with no rapid heartbeats, irregular heartbeats, or retrosternal chest pain. Gastrointestinal: As noted above. Genitourinary: Okay, with no problems with passing urine. Her last menstrual period was about a week or so ago. Musculoskeletal: Remarkable for some chronic neck pain and chronic lower back pain. Psychiatric: Okay, with no major difficulties. Skin: Okay, with no rashes. PHYSICAL EXAMINATION: GENERAL: Reveals the patient to be an overweight lady appearing to be of her stated age. VITAL SIGNS: Showing blood pressure to be in the 130/50 range. Pulse is in the 70s and regular. Respiratory rate is about 16. Oxygen saturation is 97% on room air. She is afebrile with temperature 97.7 on admission to the emergency department. HEENT: Head is normal. Ear canals and tympanic membranes are normal. Eyes show clear conjunctivae and sclerae. Funduscopic exam reveals narrow flat discs and normal vessels. Nose and throat are clear. Oral mucosa is normal. NECK: Shows no significant adenopathy. Carotid pulses are normal. There is no bruit noted. CHEST: Clear to auscultation. HEART: Reveals normal S1 and S2 with no distinct murmur or gallop. BREASTS: Not examined. There is no axillary adenopathy. ABDOMEN: Remarkable for quite diffuse upper and mid abdominal pain. The patient states pain is more pronounced to the left of the midline rather than to the right. Bowel tones are present but decreased. PELVIC: Not done. RECTAL: None done. EXTREMITIES: Show no edema. Peripheral pulses are normal. Dorsalis pedis +2 pulses are normal and are noted left and right. NEUROLOGIC: Reveals the patient to be alert and oriented x3. Cranial nerves are normal. Motor and sensory exams are normal. Deep tendon reflexes are +1 and symmetric. SKIN: Shows no significant abnormalities. LAB/IMAGING: Showed white blood cell count to be 17,000 with 96% polys, 5% lymphocytes, and 2% monocytes. Platelet count was elevated at 514,000. Hemoglobin was 11.0. Hematocrit was 34.5. Electrolytes showed sodium to be 140, potassium 3.9, chloride 103, CO2 27, BUN 20, creatinine 0.9, glucose was 166. Calcium was normal at 8.8. Bilirubin was normal at 0.3. SGOT was 220, SGPT was 261, alkaline phosphatase was 306. Lipase was 8905. Beta-hCG was negative. Urinalysis was showing a pH of 5.5, specific gravity 1.025, and was otherwise normal with no bacteria or significant red blood cells or white blood cells. Imaging studies indicate that the abdominal ultrasound is showing a somewhat dilated common bile duct at 0.8 mm. There is evidence of thickening of the gallbladder wall and inflammation of the gallbladder wall consistent with cholecystitis. This is a verbal report from the emergency department doctor. A written typed report is not yet available. IMPRESSION/PLAN: 1. The patient is presenting with acute cholecystitis with associated pancreatitis. She shows a significantly elevated white blood cell count and is quite uncomfortable. It would be appropriate for her to be admitted. She will be started on antibiotic treatment with Zosyn. She will remain nothing by mouth and will continue intravenous fluids, pain medication and nausea medication as needed. If she develops pronounced emesis, a nasogastric tube will be placed. Dr. Esqueda is aware of the patient 's admit and will consult regarding need for cholecystectomy and timing of cholecystectomy when he sees her in the morning. I advised the patient that she will likely need to be followed for 24-48 hours until cholecystectomy was done to try to let the gallbladder inflammation resolve somewhat before trying to do the cholecystectomy. She understood this. Blood tests will be repeated in the morning and will be followed to see if she is getting better or worse.
--- NOTE | 2016-05-07 07:35 | ED MED RECONCILIATION SUMMARY ---
Patient: ELZA ZALDIVAR Medication Reconciliation Report [facility] VisitID: [id number] [address] [place] [address] 45y, F Registration Date/Time: 05/06/2016 Weight: 90.7 kg Height/Length: 60 in. BMI: 39.1 ALLERGIES: Bactrim, Erythromycin, Vicodin The patient's Home Medications are listed below: THE FOLLOWING MEDICATIONS NEED TO BE RECONCILED: Atenolol Oral (25 mg) 1 tablet, daily Cephalexin Oral (500 mg) 1 capsule, 4x a day Hydrochlorothiazide Oral (25 mg) 1 tablet, daily Lisinopril Oral (40 mg) 1 tablet, daily Nabumetone Oral (750 mg) 1 tablet, BID The source(s) of the original Home Medication information: patient The following Medications were given to the patient in the Emergency Department: IV NS IV Fluids bolus 0, then 1000 mL/hr, administered: 05/06/2016 10:24:00 PM Zofran [IVP] IVP 4 mg, administered: 05/06/2016 10:25:00 PM Morphine [IVP] IVP 4 mg, administered: 05/06/2016 10:25:00 PM GI COCKTAIL WHITE [PO] PO 30 mL, administered: 05/06/2016 11:01:00 PM Dilaudid [IVP] IVP 1 mg, administered: 05/06/2016 11:36:00 PM Zosyn [IVPB] IVPB bolus 0, then 4.5 gm 100 mL/hr, administered: 05/07/2016 1:05:00 AM Dilaudid [IVP] IVP 1 mg, administered: 05/07/2016 1:10:00 AM The following Medications were prescribed to the patient: None.
--- NOTE | 2016-05-07 07:35 | ED MED RECONCILIATION SUMMARY ---
Patient: ELZA ZALDIVAR Medication Reconciliation Report [facility] VisitID: [id number] [address] [place] [address] 45y, F Registration Date/Time: 05/06/2016 Weight: 90.7 kg Height/Length: 60 in. BMI: 39.1 ALLERGIES: Bactrim, Erythromycin, Vicodin The patient's Home Medications are listed below: THE FOLLOWING MEDICATIONS NEED TO BE RECONCILED: Atenolol Oral (25 mg) 1 tablet, daily Cephalexin Oral (500 mg) 1 capsule, 4x a day Hydrochlorothiazide Oral (25 mg) 1 tablet, daily Lisinopril Oral (40 mg) 1 tablet, daily Nabumetone Oral (750 mg) 1 tablet, BID The source(s) of the original Home Medication information: patient The following Medications were given to the patient in the Emergency Department: IV NS IV Fluids bolus 0, then 1000 mL/hr, administered: 05/06/2016 10:24:00 PM Zofran [IVP] IVP 4 mg, administered: 05/06/2016 10:25:00 PM Morphine [IVP] IVP 4 mg, administered: 05/06/2016 10:25:00 PM GI COCKTAIL WHITE [PO] PO 30 mL, administered: 05/06/2016 11:01:00 PM Dilaudid [IVP] IVP 1 mg, administered: 05/06/2016 11:36:00 PM Zosyn [IVPB] IVPB bolus 0, then 4.5 gm 100 mL/hr, administered: 05/07/2016 1:05:00 AM Dilaudid [IVP] IVP 1 mg, administered: 05/07/2016 1:10:00 AM The following Medications were prescribed to the patient: None.
--- NOTE | 2016-05-07 07:35 | ED MAR SUMMARY ---
..... Medication Administration Record [facility] [address] [place] [place] [address] Patient: ELZA ZALDIVAR Visit ID: [id number] 45y, F Weight: 90.7 kg Height/Length: 60 in BMI: 39.1 ALLERGIES: Vicodin, Bactrim, Erythromycin Start 22:24 05/06/2016 Parul Gallegos R.N., Stop 23:50 05/06/2016 Mynor Portillo R.N. Medication Administered: IV NS (SALINE), Dose: IV Fluids over 1 hour(s), Rate: 1000 mL/hr, Dispensed: 1000 mL bag, Site: #1 right AC. Medication Ordered: IV NS : initial bolus 1000 mL (1000 mL/hr), then none - for X1 (NOW). Given 22:25 05/06/2016 Parul Gallegos R.N. Medication Administered: ZOFRAN [IVP] (ONDANSETRON HCL), Dose: 4 mg IVP over 1 minute(s), Site: #1 right AC. Medication Ordered: Zofran IV 4 mg (NOW). Given 22:25 05/06/2016 Parul Gallegos R.N. Medication Administered: MORPHINE [IVP], Dose: 4 mg IVP over 2 minute(s), Site: #1 right AC. Medication Ordered: Morphine IV 4 mg (HIGH ALERT MEDICATION, NOW). Given 23:01 05/06/2016 Parul Gallegos R.N. Medication Administered: GI COCKTAIL WHITE [PO] (SIMETHICONE), Dose: 30 mL Oral Suspension PO. Medication Ordered: GI Cocktail WHITE PO 30 mL (NOW). Given 23:36 05/06/2016 Parul Gallegos R.N. Medication Administered: DILAUDID [IVP] (HYDROMORPHONE HCL PF), Dose: 1 mg IVP over 1 minute(s), Site: #1 right AC. Medication Ordered: Dilaudid IV 1 mg (HIGH ALERT MEDICATION, NOW). Start 01:05 05/07/2016 Inderbitzen, Parul, R.N. Medication Administered: ZOSYN [IVPB] (PIPERACILLIN SOD-TAZOBACTAM SO), Dose: 4.5 gm IVPB over 1 hour(s), Rate: 100 mL/hr, Dispensed: 116 mL bag, Site: #1 right AC. Medication Ordered: Zosyn IV 4.5 gm/100mL (NOW). Given 01:10 05/07/2016 Parul Gallegos R.N. Medication Administered: DILAUDID [IVP] (HYDROMORPHONE HCL PF), Dose: 1 mg IVP over 1 minute(s), Site: #1 right AC. Medication Ordered: Dilaudid IV 1 mg (HIGH ALERT MEDICATION, NOW).
--- NOTE | 2016-05-07 07:35 | ED MAR SUMMARY ---
..... Medication Administration Record [facility] [address] [place] [address] Patient: ELZA ZALDIVAR Visit ID: [id number] 45y, F Weight: 90.7 kg Height/Length: 60 in BMI: 39.1 ALLERGIES: Vicodin, Bactrim, Erythromycin Start 22:24 05/06/2016 Parul Gallegos R.N., Stop 23:50 05/06/2016 Mynor Portillo R.N. Medication Administered: IV NS (SALINE), Dose: IV Fluids over 1 hour(s), Rate: 1000 mL/hr, Dispensed: 1000 mL bag, Site: #1 right AC. Medication Ordered: IV NS : initial bolus 1000 mL (1000 mL/hr), then none - for X1 (NOW). Given 22:25 05/06/2016 Parul Gallegos R.N. Medication Administered: ZOFRAN [IVP] (ONDANSETRON HCL), Dose: 4 mg IVP over 1 minute(s), Site: #1 right AC. Medication Ordered: Zofran IV 4 mg (NOW). Given 22:25 05/06/2016 Parul Gallegos R.N. Medication Administered: MORPHINE [IVP], Dose: 4 mg IVP over 2 minute(s), Site: #1 right AC. Medication Ordered: Morphine IV 4 mg (HIGH ALERT MEDICATION, NOW). Given 23:01 05/06/2016 Parul Gallegos R.N. Medication Administered: GI COCKTAIL WHITE [PO] (SIMETHICONE), Dose: 30 mL Oral Suspension PO. Medication Ordered: GI Cocktail WHITE PO 30 mL (NOW). Given 23:36 05/06/2016 Parul Gallegos R.N. Medication Administered: DILAUDID [IVP] (HYDROMORPHONE HCL PF), Dose: 1 mg IVP over 1 minute(s), Site: #1 right AC. Medication Ordered: Dilaudid IV 1 mg (HIGH ALERT MEDICATION, NOW). Start 01:05 05/07/2016 Inderbitzen, Parul, R.N. Medication Administered: ZOSYN [IVPB] (PIPERACILLIN SOD-TAZOBACTAM SO), Dose: 4.5 gm IVPB over 1 hour(s), Rate: 100 mL/hr, Dispensed: 116 mL bag, Site: #1 right AC. Medication Ordered: Zosyn IV 4.5 gm/100mL (NOW). Given 01:10 05/07/2016 Parul Gallegos R.N. Medication Administered: DILAUDID [IVP] (HYDROMORPHONE HCL PF), Dose: 1 mg IVP over 1 minute(s), Site: #1 right AC. Medication Ordered: Dilaudid IV 1 mg (HIGH ALERT MEDICATION, NOW).
--- NOTE | 2016-05-07 07:35 | ED DISCHARGE INSTRUCTIONS ---
Patient: ELZA ZALDIVAR General Instructions [facility] VisitID: [id number] [address] [place] [address] 45y, F Registration Date/Time: 05/06/2016 05/07/2016 02:28 BP: 128/54. HR: 66. RR: 16. O2 saturation: 98%. Temp: 98 F. Blood pressure normal. Oxygen saturation normal. Acute cholangitis acute nausea and vomiting intractable epigastric abdominal pain acute leukocytosis acute pancreatitis. (Electronically signed by Colten Palencia Dr. 05/07/2016 7:35)
--- NOTE | 2016-05-07 07:35 | ED DISCHARGE INSTRUCTIONS ---
Patient: ELZA ZALDIVAR General Instructions [facility] VisitID: [id number] [address] [place] [address] 45y, F Registration Date/Time: 05/06/2016 05/07/2016 02:28 BP: 128/54. HR: 66. RR: 16. O2 saturation: 98%. Temp: 98 F. Blood pressure normal. Oxygen saturation normal. Acute cholangitis acute nausea and vomiting intractable epigastric abdominal pain acute leukocytosis acute pancreatitis. (Electronically signed by Colten Palencia Dr. 05/07/2016 7:35)
--- NOTE | 2016-05-07 08:28 | DIAGNOSTIC IMAGING REPORT ---
PROCEDURE: US ABDOMEN ULTRASOUND-LIMITED INDICATION: ABDO PAIN WITH ELEVATED LFTS AND LIPASE, initial encounter TECHNIQUE: Mock scale and color Doppler sonographic images of the abdomen were obtained. COMPARISON: None. FINDINGS: Multiple gallstones and sludge with thickening of the gallbladder wall (7.5 mm). There is questionable pericholecystic fluid present. Dilated common bile duct measures 8 mm. Positive Casanova's sign. Liver measures 18.1 cm with increased echogenicity. Pancreas is normal as visualized. Aorta and IVC are patent. Normal hepatopetal flow. Normal right kidney measures 9.7 cm. IMPRESSION: 1. Cholelithiasis and sludge with gallbladder wall thickening, dilated common bile duct and positive Casanova's sign consistent with acute cholecystitis.
--- NOTE | 2016-05-07 09:15 | NUR ---
RECEIVED PT SITTING AT THE EDGE OF THE BED, ALERT, ORIENTED, COHERENT, COOPERATIVE. PT IS CRYING, COMPLAINT OF NAUSEA AND BEING HUNGRY. SEEN AND EXAMINED BY DR ENGLAND, WITH ORDERS MADE AND CARRIED OUT. PLAN OF CARE INFORMED PT. LIPASE IS [id number], DR ENGLAND NOTIFIED. MAINTAINED ON NPO. PT UNDERSTOOD. DUE MEDS GIVEN. WAITING FOR DR DESOUZA TO SEE PT. NEEDS ATTENDED.
--- NOTE | 2016-05-08 01:51 | CONSULTATION REPORT ---
DATE OF CONSULTATION: 05/07/2016 CHIEF COMPLAINT: 1. Epigastric abdominal pain HISTORY OF PRESENT ILLNESS: The patient is a 45-year-old woman who presented to the hospital with a 2-day history of epigastric abdominal pain and upper abdominal discomfort. This started after eating a hamburger for dinner, and she had pain during the night. She tried to eat something the next day, but this kicked up the pain again, causing her to present to the emergency department in the evening. At that time, she was also having problems with refractory nausea and vomiting. She had a loose stool earlier in the day, but no ongoing diarrhea. There was no hematemesis or hematochezia. This is the first time she has had similar type of pain of this nature. MEDICAL/SURGICAL HISTORY: Past medical history includes hypertension; soft tissue infection of her right great toe, being treated with antibiotics; chronic low back pain. Past surgeries are none. Gynecological history is G2, P2, . MEDICATIONS: 1. Atenolol 25 daily. 2. Hydrochlorothiazide 25 daily. 3. Lisinopril 40 daily. 4. Nabumetone 750 b.i.d. for back or neck pain. 5. Keflex 500 q.i.d. 6. Fluticasone nasal spray p.r.n. allergies. ALLERGIES: REPORTED TO: 1. ERYTHROMYCIN. 2. SULFA. 3. VICODIN. SOCIAL HISTORY: The patient is . She smokes about 1/2 pack per day. She does not take alcohol at all. FAMILY HISTORY: There is no history of pancreatic or gallbladder disease listed. Her mother is in good health. Father in his 60s with diabetes. REVIEW OF SYSTEMS: A multipoint review of systems was obtained today by Dr. Chris on his History and Physical. This was reviewed and updated. There are no new problems related by the patient. PHYSICAL EXAMINATION: GENERAL: The patient is alert and cooperative. Her mental status is normal. She is oriented to time and place, and she provides appropriate answers to questions. VITAL SIGNS: Her height is 60 inches, weight 90.7 kg. BMI of 39. Most recent vital signs: Blood pressure 159/76, heart rate of 81, temperature 97.9, and 96% room air saturation. The patient is significantly height-weight disproportionate. HEENT: Ears and nose demonstrated no gross external lesions. Eyes are equal. She is anicteric. NECK: Without palpable masses or thyromegaly. CHEST: Clear without wheeze or rales. CARDIAC: There were no bruits in the neck. There were no murmurs in the heart. ABDOMEN: Tender to palpation in the epigastrium in the middle and somewhat to the left. Bowel sounds are active. There is no palpable hepatosplenomegaly. EXTREMITIES: Symmetric. She appeared to move without restriction. NEUROLOGIC: Her cranial nerve function, mental status, motor and sensory exams appeared normal. LAB/IMAGING: Review of her laboratory work showed a leukocytosis of 17,000, hemoglobin and hematocrit of 11 and 34, platelet count of 514,000. Chemistries showed normal electrolytes, BUN of 20, glucose 166. Her liver enzymes were all mildly elevated. Her bilirubin was normal at 0.3, and her lipase was 8905. The patient had an abdominal ultrasound yesterday evening. This demonstrates cholelithiasis with sludge as well as gallbladder thickening and dilated common duct measured at 8 mm. There is questionable pericholecystic fluid. IMPRESSION: 1. Cholelithiasis with gallstone pancreatitis. PLAN: The patient will be treated with antibiotics because of the possibility of acute cholecystitis being additionally present on ultrasound. She will be kept nothing by mouth and have repeat pancreatic enzymes. If her pancreatic enzymes drop, I anticipate we will be doing a laparoscopic cholecystectomy before discharge, hopefully, in about 2 days or so. We will follow her along and see if she progresses as expected. I explained to the patient the nature of her illness and the reason she is being kept n.p.o.
[2016-05-08 02:31] VITALS: BP 126/53
[2016-05-08 07:11] VITALS: BP 108/54
--- NOTE | 2016-05-08 09:45 | NUR ---
RECEIVED PTIN BED, ASLEEP BUT EASILY AROUSED. ORIENTED, COHERENT, COOPERATIVE. V/S TAKEN AND RECORDED. O2 SAT ON RA EARLIER AT 0730 IS 85%, 02 2L INFUSED AT 0830 O2 SAT ON 2L IS AT 95%. IS GIVEN AND INSTRUC., INSTRUC PT TO AMBULATE IN THE [place]. PT COMPLAINT OF PAIN, DENIES NAUSEA AND VOMITING, DUE MEDS GIVEN.MAINTAINED ON NPO. NEEDS ATTENDED.
[2016-05-08 10:18] VITALS: BP 121/71
--- NOTE | 2016-05-08 10:45 | NUR ---
SEEN AND EXAMINED BY DR DESOUZA, WITH ORDERS MADE AND CARRIED OUT. LESS THAN 1 CUP OF CLEAR LIQUIDS PER SHIFT, FOR LAP ALEXANDREA TOMORROW. NPO POST MIDNIGHT INSTRUC. PT UNDERSTOOD.
--- NOTE | 2016-05-08 11:33 | Progress Note ---
Subjective General Feeling better but still having abdominal pain. No fevers. Physical Exam Vital Signs / I&Os Vital Signs Date Time Temp Pulse Resp B/P Pulse O2 O2 Flow FiO2 Ox Delivery Rate 05/08 1018 98.4 82 16 121/71 99 Nasal 2.0 Cannula 05/08 0945 Nasal 2.0 Cannula 05/08 0711 98.8 83 14 108/54 85 Nasal 2.0 Cannula 05/08 0231 98.2 84 14 126/53 89 Room Air 05/07 2330 98.8 90 20 143/70 94 Room Air 05/07 2050 Room Air 05/07 1816 98.1 77 16 112/68 96 Room Air 05/07 1450 97.5 80 16 127/68 93 Room Air I&O 05/08 0000 05/07 1600 05/07 0800 Intake Total 1661 Output Total 100 600 Balance -100 1061 General Appearance Alert, Oriented X3, Cooperative, No acute distress Lungs Clear to auscultation Neck Supple Cardiovascular Regular rate and rhythm, Normal S1 and S2, No murmurs, gallops, rubs Abdomen Soft, No guarding, No rebound, tender in RUQ and epigastric region, hypoactive BS. Extremities No edema Skin No Rashes Neurological No lateralizing signs Psych/Mental Status Mental status normal LAB Results Laboratory Tests 05/08 05/08 0540 UNK Chemistry Plasma Sodium (136 - 145 mmol/L) 141 Plasma Potassium (3.5 - 5.1 mmol/L) 3.7 Plasma Chloride (98 - 107 mmol/L) 108 CO2 (Enzymatic) (21 - 32 mmol/L) 24 BUN (7 - 18 mg/dL) 10 Creatinine (0.6 - 1.3 mg/dL) 0.6 Est GFR ( Amer) (mL/min) >60 Est GFR (Non-Af Amer) (mL/min) >60 Glucose (70 - 110 mg/dL) 105 Plasma Calcium (8.5 - 10.1 mg/dL) 7.3 Plasma Magnesium (1.8 - 2.4 mg/dL) 2.0 Amylase (25 - 115 U/L) 150 Lipase (73 - 393 U/L) 529 Cancelled Hematology WBC (4.5 - 11.5 K/uL) 13.1 RBC (4.00 - 5.20 M/uL) 3.98 Hgb (12.0 - 16.0 gm/dL) 8.8 Hct (36.0 - 46.0 %) 28.2 MCV (80 - 100 fL) 71 MCH (26 - 34 pg) 22 RDW (11.6 - 14.8 %) 18.2 Neut % (Auto) (50 - 75 %) 82.9 Lymph % (Auto) (25 - 40 %) 10.0 [place] % (Auto) (3 - 14 %) 4.2 Eos % (Auto) (0 - 4 %) 2.1 Baso % (Auto) (0 - 2 %) 0.8 Plt Count, EDTA (150 - 400 K/uL) 445 RBC Morphology ([id number] A) ANISOCYTOSIS 1+ PUBS MCHC (31 - 37 g/dL) 31 Assessment and Plan Problem List 1. Acute gallstone pancreatitis Plan Improving. Will continue IVF hydration, antiemetics and pain relief. Continue monitoring abdominal exam. 2. Acute cholecystitis Plan Continuing on zosyn. WBC count downtrending and patient remains afebrile. Surgery on board, and appreciate their assistance, and plan is for possible lap lashon prior to discharge. Will follow up any further recommendations. FEN: NPO PPx: SCDs Code: FULL Dispo: Pending resolution of pancreatitis and potential surgery. E&M Codes Rounding: Inpt-High/[id number]
--- NOTE | 2016-05-08 11:43 | Progress Note ---
Subjective General Pt. feels better, pain has subsided. She would like to eat. Constitutional Denies: Fever, Chills, Sweats, Weakness, Malaise. Respiratory Denies: Cough, Dry, SOB w/exertion, Wheezing, Hemoptysis, Pleuritic Pain, Sputum. Cardiovascular Denies: Chest Pain, Palpitations, Orthopnea, PND, Edema, Light-headedness. Gastrointestinal Abdominal Pain. Denies: Nausea, Vomiting, Diarrhea. Genitourinary Denies: Dysuria, Frequency, Incontinence, Hematuria, Retention. Physical Exam Vital Signs / I&Os Vital Signs Date Time Temp Pulse Resp B/P Pulse O2 O2 Flow FiO2 Ox Delivery Rate 05/08 1018 98.4 82 16 121/71 99 Nasal 2.0 Cannula 05/08 0945 Nasal 2.0 Cannula 05/08 0711 98.8 83 14 108/54 85 Nasal 2.0 Cannula 05/08 0231 98.2 84 14 126/53 89 Room Air 05/07 2330 98.8 90 20 143/70 94 Room Air 05/07 2050 Room Air 05/07 1816 98.1 77 16 112/68 96 Room Air 05/07 1450 97.5 80 16 127/68 93 Room Air I&O 05/07 0800 02/04 1600 02/05 0000 Intake Total 1661 Output Total 600 100 Balance 1061 -100 General Appearance Alert, Oriented X3, Cooperative, No acute distress HEENT Normal exam, Atraumatic, PERRLA, EOMI, Moist mucous membranes Lungs Normal exam Cardiovascular Normal exam Abdomen Normal bowel sounds, No masses, mild discomfort in epigastrium Assessment and Plan Problem List 1. Acute gallstone pancreatitis Plan labs are reviewed today and the pancreatic enzymes have nearly normalized from yesterday. I have recommended a lap lashon and grams for tommorow if the present trajectory continues. The pt. was made aware of this recommendation including alternative, benefits, and risks such as infection, bleeding, scars, pain, damage to local structures, common duct stones and their sequelae and others. The wishes to proceed as described to her. 2. Acute cholecystitis
--- NOTE | 2016-05-08 13:36 | NUR ---
SURGICAL CONSENT SECURED.
[2016-05-08 15:04] VITALS: BP 131/59
[2016-05-08 18:01] VITALS: BP 143/72
--- NOTE | 2016-05-08 18:35 | NUR ---
PT C/O "NEW PAIN IN MY ABDOMEN, IN THE LOWER RIGHT SIDE, INSTEAD OF UP ABOVE". PT STATES LITTLE PAIN UPON PALPATION, BUT MORE PAIN WHEN I LET GO. GAVE PT 1 MG DILAUDID FOR PAIN RELIEF AND 4 MG ZOFRAN FOR NAUSEA. PT TEARFUL. CALLED DR - ASKED PT TO NOTIFY US IF PAIN WORSENS. WILL MONITOR VILTALS AND TEMP. PT USES CALL LIGHT APPROPRIATELY AND IS ABLE TO MAKE NEEDS KNOWN. ASSISTED PT FROM SITTING AT BEDSIDE TO SUPINE POSITION, PER PT'S REQUEST. CALL LIGHT IN REACH.
[2016-05-08 22:26] VITALS: BP 121/73
[2016-05-09] VITALS (11 sets, daily range): BP systolic 108–141; BP diastolic 49–83
--- NOTE | 2016-05-09 13:18 | NUR ---
PT RECIEVED ZOSIN STARTED IN ACUTE CARE AT 1133 PRIOR TO START OF CASE.
--- NOTE | 2016-05-09 13:32 | Progress Note ---
Subjective General Pt seen and examined, patient has no complaints at the present time except for her abdominal pain which is well controlled. Patient is scheduled for lap lashon today. Constitutional Weakness, Malaise. Respiratory Denies: Cough, Dry, SOB w/exertion, Wheezing, Hemoptysis, Pleuritic Pain, Sputum , Other. Cardiovascular Denies: Chest Pain, Palpitations, Orthopnea, PND, Edema, Light-headedness, Other. Gastrointestinal Nausea, Abdominal Pain. Denies: Vomiting, Diarrhea, Constipation, Melena, Hematochezia. Genitourinary Denies: Dysuria, Frequency, Incontinence, Hematuria, Retention, Other. Skin Denies: Rash, Lesions, Jaundice, Bruising, Other. Physical Exam Vital Signs / I&Os Vital Signs Date Time Temp Pulse Resp B/P Pulse O2 O2 Flow FiO2 Ox Delivery Rate 05/09 1021 98.2 80 22 141/58 96 Room Air 0.0 05/09 0923 1.0 05/09 0639 98.4 86 20 126/55 92 Nasal 1.0 Cannula 05/09 0229 98.8 82 16 108/49 93 Nasal 1.0 Cannula 05/08 2240 1.0 05/08 2240 Nasal Cannula 05/08 2226 98.8 81 16 121/73 90 Room Air 05/08 1801 99.0 83 16 143/72 97 Room Air 05/08 1710 Room Air 05/08 1622 Room Air 0.0 05/08 1504 97.9 85 15 131/59 90 Room Air I&O 05/08 0800 02/05 1600 / 0000 Intake Total 1825 1103 728 Output Total 300 875 50 Balance 1525 228 678 General Appearance Alert, Oriented X3, Mild distress HEENT Atraumatic Lungs Clear to auscultation, Normal air movement Neck Supple, No JVD Cardiovascular Regular rate and rhythm, Normal S1 and S2, No murmurs, gallops, rubs Abdomen Normal bowel sounds, Soft, No tenderness Extremities No edema, Normal pulses, No tenderness, Strength = upper ext's, Strength = lower ext's Skin No Rashes, No Breakdown, No Significant Lesions Neurological Normal speech, Normal tone, Reflexes 2+ and equal, Cranial nerves intact, Strength 5/5 x4 ext's Psych/Mental Status Mental status normal LAB Results Laboratory Tests 05/09 0534 Chemistry Plasma Sodium (136 - 145 mmol/L) 140 Plasma Potassium (3.5 - 5.1 mmol/L) 3.7 Plasma Chloride (98 - 107 mmol/L) 108 CO2 (Enzymatic) (21 - 32 mmol/L) 24 BUN (7 - 18 mg/dL) 5 Creatinine (0.6 - 1.3 mg/dL) 0.5 Est GFR ( Amer) (mL/min) >60 Est GFR (Non-Af Amer) (mL/min) >60 Glucose (70 - 110 mg/dL) 108 Plasma Calcium (8.5 - 10.1 mg/dL) 7.4 Total Bilirubin (0.0 - 1.0 mg/dL) 0.3 AST (15 - 37 U/L) 17 ALT (12 - 78 U/L) 64 Alkaline Phosphatase (46 - 116 U/L) 173 Total Protein (6.4 - 8.2 g/dL) 5.7 Albumin (3.3 - 5.0 g/dL) 2.2 Lipase (73 - 393 U/L) 120 Hematology WBC (4.5 - 11.5 K/uL) 11.7 RBC (4.00 - 5.20 M/uL) 3.68 Hgb (12.0 - 16.0 gm/dL) 8.3 Hct (36.0 - 46.0 %) 26.4 MCV (80 - 100 fL) 72 MCH (26 - 34 pg) 23 RDW (11.6 - 14.8 %) 18.7 Neut % (Auto) (50 - 75 %) 79.2 Lymph % (Auto) (25 - 40 %) 11.2 [place] % (Auto) (3 - 14 %) 6.2 Eos % (Auto) (0 - 4 %) 3.0 Baso % (Auto) (0 - 2 %) 0.4 Plt Count, EDTA (150 - 400 K/uL) 433 RBC Morphology ([id number] A) 1+ POIKILOCYTOSIS PUBS MCHC (31 - 37 g/dL) 31 Assessment and Plan Problem List 1. Acute cholecystitis Plan - pt found to have acute cholecystitis requiring surgery - pt will go for lap lashon today - will post op check the patient when returns to the room - will repeat cbc and cmp when pt returns 2. Nausea & vomiting Plan - controlled currently - c/w medication regimen 3. Acute gallstone pancreatitis Plan - pt additionally seen to have concomitant pancreatitis - will keep npo after the procedure and monitor - pt exam and repeat lab work will determine further treatment
--- NOTE | 2016-05-09 13:53 | DIAGNOSTIC IMAGING REPORT ---
PROCEDURE: XR INTRAOPERATIVE LAP ALEXANDREA INDICATION: LAP ALEXANDREA WITH IOC TECHNIQUE: Intraoperative fluoroscopy provided for Dr. Esqueda performing an intraoperative cholangiogram following cholecystectomy. Total fluoroscopy time 11-seconds. Cumulative dose 7.5 mGy. COMPARISON: None. FINDINGS: Two intraoperative fluoroscopic spot images of the right upper quadrant of the abdomen demonstrate cannulation of the cystic duct stump and opacification of the intrahepatic and extrahepatic biliary tree. There are no filling defects. There is normal passage of contrast into the duodenum. IMPRESSION: 1. Negative intraoperative cholangiogram.
--- NOTE | 2016-05-09 14:02 | NUR ---
PT RECEIVED TO PACU SEDATED, RESTING ON HER BACK WITH HOB ELEVATED. PLACED ON HUMIDIFIED O2 VIA FACE TENT ON ARRIVAL TO PACU. PT AROUSABLE TO PERSISTENT VOICE STIMULI. VSS.
--- NOTE | 2016-05-09 14:06 | NUR ---
PT NOW EASILY AROUSES TO VOICE. DENIES PAIN OR NAUSEA. VSS. WARM BLANKETS FOR COMFORT.
[2016-05-09] MEDS ORDERED: PERCOCET1 TA1 PO (14:12)
--- NOTE | 2016-05-09 14:13 | Provider's Discharge Care Plan ---
Problem, Goal, Plan Problem List 1. Acute gallstone pancreatitis
--- NOTE | 2016-05-09 14:13 | Provider's Discharge Care Plan ---
Problem, Goal, Plan Problem List 1. Acute gallstone pancreatitis
--- NOTE | 2016-05-09 14:29 | NUR ---
HUMIDIFIED O2 STOPPED PER PT REQUEST, SHE FELT SHE "CAN'T BREATHE" WITH THE FACE TENT IN PLACE. MEDICATED FOR RIGHT UPPER QUADRANT ABDOMINAL PAIN WITH FENTANYL IV. MILD NAUSEA RELIEVED WITH QUEASE EASE. VSS.
--- NOTE | 2016-05-09 14:48 | OPERATIVE REPORT ---
DATE OF SURGERY: 05/09/2016 SURGEON: Sampson Esqueda MD DIRECTOR DATA ARCHITECTURE: Greg Hayes III, MD PREOPERATIVE DIAGNOSIS: 1. Acute gallstone pancreatitis POSTOPERATIVE DIAGNOSIS: 1. Acute gallstone pancreatitis PROCEDURE PERFORMED: 1. Laparoscopic cholecystectomy with cholangiography ANESTHESIA: General. INDICATIONS: The patient is a 45-year-old woman presenting with a 2-day history of epigastric abdominal pain and laboratory evidence of acute pancreatitis. The patient was observed on IV fluids and the pancreatitis resolved chemically over several days. She was taken to surgery at this time for cholecystectomy. The patient was found to have extensive cholelithiasis. SURGICAL TECHNIQUE: The patient was taken to the operating room, where a general anesthetic was administered and the patient prepped and draped in usual sterile fashion. The patient urinated immediately before surgery and no Ma is placed. She had an orogastric tube, IV antibiotics, and sequential compressive devices. A local anesthetic of 0.5% Marcaine with epinephrine was used at each incision site. An intraumbilical incision was made and a Veress needle used to insufflate the abdominal cavity. A 10 mm port was placed and visualization was obtained. The patient had extensive central adiposity, but, with reverse Trendelenburg position and lifting of the gallbladder, it was possible to make isolate the cystic duct. Three additional cannulae were placed in the usual locations. There was a moderate amount of clear straw- colored ascites around the liver and some edema toward the pancreas. The cystic duct was isolated at the neck of the gallbladder and a clip was placed. A fluoroscopic cholangiogram was carried out, which demonstrated free flow into the duodenum and no filling defects. The cystic duct and artery were both doubly clipped and divided and the gallbladder stripped from the gallbladder fossa using electrocautery. It was placed in a bag and extracted through the upper port site after being morcellated. The operative site was irrigated and inspected and found to be hemostatic. Additional Marcaine was instilled, gas was evacuated, and the skin sites closed with interrupted subcuticular 4-0 Vicryl suture. Steri-Strips and dressings were placed. The patient left the operating room in good condition.
--- NOTE | 2016-05-09 14:54 | NUR ---
PT COMFORTABLE, RESTING WHEN NOT DISTURBED. REPORTS PAIN 3-4/10 AND "OK". VSS.
--- NOTE | 2016-05-09 21:29 | NUR ---
PT D/C TO HOME AT 2119 VIA PRIVATE VEHICLE. CHANGED 3 OF PT'S 4 TROCHAR DRESSINGS THAT WERE SANGUINOUS. PT'S PAIN IS CONTROLLED. PT DENIES DIZZINESS, N/V, CP OR SOB. VSS. PT ABLE TO TOLORATE CLEAR LIQUID DIET. UNDERSTANDS DISCHARGE INSTRUCTIONS AND ALL QUESTIONS HAVE BEEN ANSWERED. PT HAS ALL BELONGINGS.
== END 2016-05-09 21:20 | disposition home or self-care (01) | DRG 263 ==
LOC: ED SRH 21:52 → ACUTE2 SRH 05-07 01:08 → TRANS SRH 05-07 01:08 → ACUTE2 SRH 05-07 02:48
PROVIDERS: Surgery; ADMIT Family Medicine
PROC: BF101ZZ Fluoroscopy of Bile Ducts using Low Osmolar Contrast (ICD-10-PCS; principal; 2016-05-09 12:00)
PROC: 0FT44ZZ Resection of Gallbladder, Percutaneous Endoscopic Approach (ICD-10-PCS; principal; 2016-05-09 12:00)
DX: K85.10 Biliary acute pancreatitis without necrosis or infection (principal); K80.00 Calculus of gallbladder with acute cholecystitis without obstruction; R11.2 Nausea with vomiting, unspecified; I10 Essential (primary) hypertension; J45.909 Unspecified asthma, uncomplicated
CPT/HCPCS: 50002; 60001; 70002; 80102; 80212; 80248; 80852; 81238; 82794; 82807; 83125; 83338; 83339; 83348; 83587; 83920; 83937; 83982; 84038; 90004; 90047; 90074; 90100; 90197; 92132; 92235; 92530; 92710; 92720; 95059